=== PATIENT | female | born 1985 | race Caucasian/White ===

== ENCOUNTER 2020-02-14 06:05 | Emergency (ER) | payer SELFPAY ==
[2020-02-14 06:23] VITALS: BP 115/66; PULSE 93; RESP 24; TEMP 37.8; O2SAT 95; BMI 35.4
--- NOTE | 2020-02-14 06:24 | XRR_ITS ---
PROCEDURE INFORMATION: Exam: XR Chest, 1 View Exam date and time: 02/14/2020 6:25 AM Age: 34 years old Clinical indication: Cough TECHNIQUE: Imaging protocol: XR of the chest Views: 1 view. COMPARISON: No relevant prior studies available. FINDINGS: Lungs: Unremarkable. No consolidation. Pleural space: Unremarkable. No pleural effusion. No pneumothorax. Heart/Mediastinum: Unremarkable. No cardiomegaly. Bones/joints: Unremarkable. XR/XR chest 1V portable 32530 IMPRESSION: No acute findings.
--- NOTE | 2020-02-14 06:35 | W.ED.COVID ---
HPI - COVID General: Chief Complaint: COVID symptoms Stated Complaint: cough and fever Time Seen by Provider: 02/14/20 06:23 Source: patient Mode of arrival: ambulatory Limitations: no limitations Triage information: Has fever, cough or shortness of breath. No known COVID + exposure last 14 days History of Present Illness: HPI Narrative: 34-year-old female states she been having a fever along with cough since last night. States her cough is nonproductive and has had a cough here as well. She denies any worsening or improving factors. She states she has had a sharp chest pain with her coughing. She has had no vomiting or diarrhea. She denies any worsening or improving factors. She has had no known sick contacts but she is not sure. COVID 19 common symptoms: positive fever(s) and non-productive cough; negative headache(s), throat pain, nausea, vomiting or diarrhea COVID 19 other sytmptoms: negative chest pain COVID Results: No Data to Display Review of Systems Const: Reports: fever(s) Eyes: Denies: blurry vision or eye discomfort ENMT: Denies: throat pain or dental pain Card: Denies: chest pain Resp: Reports: non-productive cough GI: Denies: abdominal pain, nausea, vomiting or diarrhea : Denies: dysuria Musc: Denies: neck pain or back pain Skin/Breast: Denies: rash Neuro: Denies: headache(s) Psych: Denies: depression Evaristo/Lymph: Denies: easy bruising All/Imm: Denies: urticaria Physical Exam Const: COMMON NORMALS: no acute distress, patient oriented x3 and healthy appearing HENMT: COMMON NORMALS: normocephalic and atraumatic HEAD & SCALP: normocephalic and atraumatic Eye: COMMON NORMALS: Equal, round and reactive pupils present and EOMs intact bilaterally PUPIL: Yes Equal, round and reactive pupils present Neck/C-Spine: COMMON NORMALS: full ROM and supple Chest: COMMONS NORMALS: normal inspection of the chest and normal palpation of entire chest wall Resp: COMMON NORMALS: normal respiratory effort, No retractions, No use of accessory muscles and clear to auscultation bilaterally AUSCULTATION: clear to auscultation bilaterally Cardio: COMMON NORMALS: regular rate, regular rhythm and No murmurs present (Cardio) RATE: regular rate RHYTHM: regular rhythm GI: COMMON NORMALS: Normal to inspection, nondistended, normoactive bowel sounds present, Soft to palpation, non-tender and no masses PALPATION: Yes Soft to palpation Extremity: COMMON NORMALS: normal to inspection and full ROM Neuro: COMMON NORMALS: patient oriented x3, moves all extremities and no focal motor deficits Psych: COMMON NORMALS: mental status grossly normal, Normal thought process present and cooperative THOUGHT PROCESS: Normal thought process present Skin: COMMON NORMALS: no rashes or lesions noted and no wounds GENERAL SKIN EXAM: no rashes or lesions noted Course Vital Signs: Vital signs: Vital Signs Temperature 100.1 F H 02/14/20 06:23 Pulse Rate 93 02/14/20 06:48 Respiratory Rate 22 H 02/14/20 06:48 Blood Pressure 115/66 02/14/20 06:23 Pulse Oximetry 97 02/14/20 07:05 MDM - COVID MDM Narrative Medical decision making narrative: Patient presents here with cough with low-grade fevers. Patient likely has an upper respiratory infection or coronavirus. We will test her. Her x-ray here shows no pneumonia. We will place her on albuterol inhaler along with Keflex. Patient has no signs of large pneumonia. She has no signs of pulmonary embolism and her vital signs here are all normal. She is stable for discharge. Lab Data COVID Results: No Data to Display Imaging Data CXR: Attestation: I personally reviewed and interpreted this imaging study as follows: My impression: no acute abnormality Discharge Plan Discharge Patient Disposition: Home Clinical Impression: Upper respiratory infection, Suspected severe acute respiratory syndrome coronavirus 2 (SARS-CoV-2) infection Condition: Stable Prescriptions: New Keflex 500 mg capsule 500 mg PO Q6H 7 Days Qty: 28 RF: 0 albuterol sulfate 90 mcg/actuation HFA aerosol inhaler 2 inh INHALATION Q6H PRN (Reason: shortness of breath or wheezing) Qty: 8 RF: 0 Discharge Orders: Discharge Order (Routine); Ordered 02/14/20 Ordered By: Hany Santos Referrals: Sonido Kevin MD [Family Provider] - 1-3 days Discharge Diet: Advance as tolerated Discharge Activity: Resume usual activity Patient Instructions: Upper Respiratory Infection (ED) Discharge Date/Time: 02/14/20 07:20 Coding Level of Care Code ED Salmon Gillnet Vessel Operator for Chg Fwd Exam Comprehensive
[2020-02-14 06:48] VITALS: PULSE 93; RESP 22; O2SAT 94
[2020-02-14] MEDS: albuterol 8 gm MDI 2 PUFF INHALATION (06:48)
[2020-02-14] MEDS: acetaminophen 500 mg Tablet 1000 MG PO (06:56)
[2020-02-14] MEDS: dexamethasone 4 mg/mL INJ 10 MG IM (06:58)
[2020-02-14 07:05] VITALS: O2SAT 97
[2020-02-14 07:19] VITALS: BP 143/80; PULSE 87; RESP 15; O2SAT 97
== END 2020-02-14 07:20 | disposition home or self-care (01) ==
PROVIDERS: Emergency Provider Emergency Medicine; Family Provider Family Medicine
DX: J06.9 Acute upper respiratory infection, unspecified (principal); Z20.828 Contact with and (suspected) exposure to other viral communicable diseases
CPT/HCPCS: 12345; 71045; 94640; 96372; 99281; 99283; J1100; J3535